=== PATIENT | female | born 1940 | race Caucasian/White ===

== ENCOUNTER 2017-05-09 07:40 | Day surgery (SDC) | payer MEDICARE, BC ==
[~2017-05-09 07:40] MED LIST: PROPOFOL 500 MG/50 ML EMU IV ONE
[2017-05-09 09:47] VITALS: BP 136/92; PULSE 76; RESP 18; TEMP 96.7; O2SAT 95
== END 2017-05-09 10:08 | disposition home or self-care (01) | DRG 392 ==
LOC: SURG 07:40
PROVIDERS: ATTEND Surgery
DX: K57.30 Diverticulosis of large intestine without perforation or abscess without bleeding (principal); Z87.19 Personal history of other diseases of the digestive system
CPT/HCPCS: 99001; J2001; J2704

== ENCOUNTER 2017-12-20 07:22 | Day surgery (SDC) | payer MEDICARE, BC ==
[2017-12-20] MEDS ORDERED: DIAZEPAM 5 MG TAB ONE (08:53)
[2017-12-20] MEDS ORDERED: DIAZEPAM 5 MG TAB PO ONE (08:55)
[2017-12-20] MEDS ORDERED: LIDOCAINE HCL 1% MPF SOL ONE (08:56)
[2017-12-20] MEDS ORDERED: BUPIVACAINE HCL 0.25% MPF 10 ML SOL INFIL ONE (08:56)
[2017-12-20] MEDS: TRIAMCINOLONE ACETONIDE 40 MG/ML SUS ONE ×2 (09:13→09:16)
[2017-12-20 09:27] VITALS: TEMP 97.6
[2017-12-20 10:21] VITALS: BP 135/75; PULSE 86; RESP 16; O2SAT 99
== END 2017-12-20 10:45 | disposition home or self-care (01) | DRG 554 ==
LOC: SURG 07:22
PROVIDERS: ATTEND Nurse Anesthetist, Certified Registered
DX: M12.9 Arthropathy, unspecified (principal); M53.3 Sacrococcygeal disorders, not elsewhere classified
CPT/HCPCS: A9270-GY; J2001; J3300

== ENCOUNTER 2018-01-30 12:38 | Day surgery (SDC) | payer MEDICARE, BC ==
[2018-01-30] MEDS ORDERED: DIAZEPAM 5 MG TAB ONE (12:52)
[2018-01-30] MEDS ORDERED: LIDOCAINE HCL 1% MPF SOL ONE (13:31)
[2018-01-30] MEDS ORDERED: BUPIVACAINE HCL 0.25% MPF 10 ML SOL INFIL ONE (13:32)
[2018-01-30 14:54] VITALS: BP 157/84; PULSE 72; RESP 20; TEMP 98.5; O2SAT 97
== END 2018-01-30 14:40 | disposition home or self-care (01) | DRG 552 ==
LOC: SURG 12:38
PROVIDERS: ATTEND Nurse Anesthetist, Certified Registered
DX: M54.5 Low back pain (principal); M12.88 Other specific arthropathies, not elsewhere classified, other specified site
CPT/HCPCS: A9270-GY; J2001

== ENCOUNTER 2018-03-20 11:46 | Day surgery (SDC) | payer MEDICARE, BC ==
[2018-03-20] MEDS ORDERED: DIAZEPAM 5 MG TAB ONE (12:14)
[2018-03-20] MEDS ORDERED: LIDOCAINE HCL 1% MPF 30 SOL ONE (12:42)
[2018-03-20] MEDS ORDERED: LIDOCAINE HCL 2% MPF 10 ML SOL ONE (12:42)
[2018-03-20 13:11] VITALS: PULSE 75; RESP 16
[2018-03-20 13:20] VITALS: BP 167/99; TEMP 97.8; O2SAT 100
== END 2018-03-20 13:42 | disposition home or self-care (01) | DRG 554 ==
LOC: SURG 11:46
PROVIDERS: ATTEND Nurse Anesthetist, Certified Registered
DX: M12.88 Other specific arthropathies, not elsewhere classified, other specified site (principal)
CPT/HCPCS: A9270-GY; J2001

== ENCOUNTER → 2018-04-16 | Day surgery (SDC) | payer MEDICARE, BC ==
[~2018-04-16] MED LIST changes: +BUPIVACAINE HCL 0.25% MPF 30 ML SOL INFIL ONE; +FENTANYL 100MCG/2ML SOL ONE; +LIDOCAINE HCL 2% MPF 10 ML SOL ONE; +MIDAZOLAM 2 MG/2 ML SOL ONE; -PROPOFOL 500 MG/50 ML EMU IV ONE; +SODIUM CHLORIDE 0.9% FLUSH 10 ML SOL IV ONE; +TRIAMCINOLONE ACETONIDE 40 MG/ML SUS ONE
[2018-04-16 12:12] VITALS: BP 115/72; PULSE 72; RESP 16; TEMP 97.8; O2SAT 97
== END | disposition home or self-care (01) | DRG 554 ==
LOC: SURG 09:18
PROVIDERS: ATTEND Nurse Anesthetist, Certified Registered
DX: M12.88 Other specific arthropathies, not elsewhere classified, other specified site (principal)
CPT/HCPCS: J2250; J3010; J3300

== ENCOUNTER 2018-04-24 07:18 | Day surgery (SDC) | payer MEDICARE, BC ==
[2018-04-24] MEDS ORDERED: LIDOCAINE HCL 2% MPF 10 ML SOL ONE (07:41)
[2018-04-24] MEDS ORDERED: TRIAMCINOLONE ACETONIDE 40 MG/ML SUS ONE (07:41)
[2018-04-24] MEDS ORDERED: BUPIVACAINE HCL 0.25% MPF 30 ML SOL INFIL ONE (07:42)
[2018-04-24] MEDS ORDERED: FENTANYL 100MCG/2ML SOL ONE (07:51)
[2018-04-24] MEDS ORDERED: MIDAZOLAM 2 MG/2 ML SOL ONE (07:51)
[2018-04-24] MEDS ORDERED: SODIUM CHLORIDE 0.9% FLUSH 10 ML SOL IV ONE ×2 (07:52→08:07)
[2018-04-24 08:51] VITALS: BP 155/99; PULSE 69; RESP 12; TEMP 97.5; O2SAT 97
== END 2018-04-24 09:19 | disposition home or self-care (01) | DRG 554 ==
LOC: SURG 07:18
PROVIDERS: ATTEND Nurse Anesthetist, Certified Registered
DX: M12.88 Other specific arthropathies, not elsewhere classified, other specified site (principal)
CPT/HCPCS: J2250; J3010; J3300

== ENCOUNTER 2019-02-10 11:56 | Outpatient (CLI) | payer MEDICARE, BC ==
[2018-06-04 12:58] VITALS: O2SAT 97
== END 2019-02-10 11:57 | disposition home or self-care (01) | DRG 556 ==
LOC: CONVCARE 11:56
PROVIDERS: ATTEND Orthopaedic Surgery
DX: M25.562 Pain in left knee (principal); M25.561 Pain in right knee; M25.511 Pain in right shoulder
CPT/HCPCS: 73560